=== PATIENT | female | born 1995 | race Two or more races ===

== ENCOUNTER 2021-05-13 02:28 | Emergency (ER) | payer MEDICAID ==
[~2021-05-13] VITALS: Ht 162.6 cm; Wt 59.1 kg
[2021-05-13 04:23] LABS: BASOPHILS % (AUTO) 0.3 % (0.0-2.0); HEMATOCRIT 35.6 % (36-46); HEMOGLOBIN 11.8 g/dL (12.0-16.0); LYMPHOCYTES # (AUTO) 2.5 K/uL (1.0-4.8); LYMPHOCYTES % (AUTO) 25.7 % (22.0-44.0); MEAN CORPUSCULAR HEMOGLOBIN 28.1 pg (26.0-34.0); MEAN CORPUSCULAR HGB CONC 33.2 G/dL (31.0-37.0); MEAN CORPUSCULAR VOLUME 85 fL (80-100); MONOCYTES # (AUTO) 0.8 K/uL (0.1-1.0); NEUTROPHILS # (AUTO) 6.4 K/uL (1.8-7.7); PLATELET COUNT (AUTO) 321 K/uL (150-450); RED CELL DISTRIBUTION WIDTH 13.8 % (11.5-14.5)
[2021-05-13 04:39] LABS: ANION GAP 9 mmol/L (8-16); CALCIUM, TOTAL 8.8 mg/dL (8.8-10.5); CARBON DIOXIDE 26 mmol/L (22-29); CHLORIDE 103 mmol/L (98-107); CREATININE 0.48 mg/dL (0.60-1.30); GLOMERULAR FILTR. RATE CALC > 60 mL/min (>60); GLUCOSE,RANDOM 97 mg/dL (70-110); POTASSIUM 4.2 mmol/L (3.5-5.1); SODIUM SERUM 138 mmol/L (136-145); UREA NITROGEN, BLOOD 9 mg/dL (7-18)
[2021-05-13 05:08] LABS: ALANINE AMINOTRANSFERASE 30 U/L (12-78); ALBUMIN 3.3 g/dL (3.4-5.0); ALKALINE PHOSPHATASE 65 U/L (46-116); ASPARTATE AMINOTRANSFERASE 16 U/L (15-37); BILIRUBIN,TOTAL 0.1 mg/dL (0.1-1.0); HCG,QUANTITATIVE 33693 mIU/mL (0-6); TOTAL PROTEIN, SERUM 7.6 g/dL (6.4-8.2)
[2021-05-13 05:10] VITALS: BP 126/92
== END 2021-05-13 05:26 | disposition home or self-care (01) ==
LOC: EMS 02:36
DX: O26.891 Other specified pregnancy related conditions, first trimester (principal); F41.9 Anxiety disorder, unspecified; R10.2 Pelvic and perineal pain; Z3A.01 Less than 8 weeks gestation of pregnancy
CPT/HCPCS: 76801; 76817; 80053; 84702; 85025; 86901; 99284

== ENCOUNTER 2021-10-08 11:00 | Emergency (ER) | payer MEDICAID ==
[~2021-10-08] VITALS: Ht 157.5 cm; Wt 60.5 kg
[2021-10-08] MEDS ORDERED: ONDANSETRON HCL 4 MG/2 ML VIAL IVP ONE (12:15)
[2021-10-08] MEDS ORDERED: SODIUM CHLORIDE 0.9% 1,000 ML IV ONE (12:15)
[2021-10-08 12:30] LABS: BASOPHILS % (AUTO) 0.1 % (0.0-2.0); EOSINOPHILS % (AUTO) 0.2 % (1.0-6.0); HEMATOCRIT 38.5 % (36-46); HEMOGLOBIN 12.8 g/dL (12.0-16.0); LYMPHOCYTES # (AUTO) 1.1 K/uL (1.0-4.8); MEAN CORPUSCULAR HEMOGLOBIN 28.7 pg (26.0-34.0); MEAN CORPUSCULAR HGB CONC 33.1 G/dL (31.0-37.0); MEAN CORPUSCULAR VOLUME 87 fL (80-100); MONOCYTES # (AUTO) 0.5 K/uL (0.1-1.0); MONOCYTES % (AUTO) 5.5 % (2.0-9.0); NEUTROPHILS # (AUTO) 7.7 K/uL (1.8-7.7); NEUTROPHILS % (AUTO) 82.2 % (40.0-70.0); PLATELET COUNT (AUTO) 307 K/uL (150-450); RED BLOOD CELL COUNT(AUTO) 4.45 MIL/uL (4.00-5.20)
[2021-10-08 12:38] LABS: ANION GAP 11 mmol/L (8-16); CALCIUM, TOTAL 8.4 mg/dL (8.8-10.5); CARBON DIOXIDE 21 mmol/L (22-29); CHLORIDE 103 mmol/L (98-107); CREATININE 0.41 mg/dL (0.60-1.30); GLOMERULAR FILTR. RATE CALC > 60 mL/min (>60); GLUCOSE,RANDOM 83 mg/dL (70-110); POTASSIUM 3.4 mmol/L (3.5-5.1); SODIUM SERUM 135 mmol/L (136-145); UREA NITROGEN, BLOOD 4 mg/dL (7-18)
[2021-10-08 12:43] LABS: INR 0.9 (0.9-1.1); PROTHROMBIN TIME 10.1 SEC (9.4-11.6)
[2021-10-08 12:45] LABS: COVID AG,FIA SOURCE NASOPHARYNGEAL
[2021-10-08 13:15] LABS: INFLUENZA TYPE A NEGATIVE FOR TYPE A (NEGATIVE)
[2021-10-08] MEDS ORDERED: GuaiFENesin/D-METHORPHAN [SUGAR-FREE] 200-20MG/10 ML SYRUP UDCUP PO ONE (13:15)
[2021-10-08] MEDS ORDERED: ACETAMINOPHEN 500 MG TABLET PO ONE (13:15)
[2021-10-08 13:16] LABS: INFLUENZA TYPE B NEGATIVE FOR TYPE B (NEGATIVE)
[2021-10-08 13:17] LABS: ALANINE AMINOTRANSFERASE 16 U/L (12-78); ALBUMIN 2.8 g/dL (3.4-5.0); ALKALINE PHOSPHATASE 90 U/L (46-116); ASPARTATE AMINOTRANSFERASE 15 U/L (15-37); BILIRUBIN,TOTAL 0.2 mg/dL (0.1-1.0); HCG,QUANTITATIVE 20682 mIU/mL (0-6); LIPASE 84 U/L (73-393); TOTAL PROTEIN, SERUM 7.7 g/dL (6.4-8.2)
[2021-10-08 13:30] VITALS: BP 130/76
== END 2021-10-08 13:44 | disposition home or self-care (01) ==
LOC: EMS 11:02
DX: O26.892 Other specified pregnancy related conditions, second trimester (principal); K52.9 Noninfective gastroenteritis and colitis, unspecified; O99.512 Diseases of the respiratory system complicating pregnancy, second trimester; J06.9 Acute upper respiratory infection, unspecified; Z20.822 Contact with and (suspected) exposure to COVID-19; Z3A.00 Weeks of gestation of pregnancy not specified
CPT/HCPCS: 36415; 80053; 83690; 84702; 85025; 85610; 85730; 87426; 87804; 96361; 96374; 99283; J2405; J7030

== ENCOUNTER 2021-12-29 22:53 | Emergency (ER) | payer MEDICAID ==
[~2021-12-29] VITALS: Ht 157.5 cm; Wt 69.1 kg
[2021-12-30 00:01] LABS: BASOPHILS % (AUTO) 0.3 % (0.0-2.0); EOSINOPHILS % (AUTO) 0.3 % (1.0-6.0); HEMATOCRIT 47.4 % (36-46); HEMOGLOBIN 15.8 g/dL (12.0-16.0); LYMPHOCYTES # (AUTO) 2.3 K/uL (1.0-4.8); LYMPHOCYTES % (AUTO) 16.4 % (22.0-44.0); MEAN CORPUSCULAR HEMOGLOBIN 27.9 pg (26.0-34.0); MEAN CORPUSCULAR HGB CONC 33.2 G/dL (31.0-37.0); MEAN CORPUSCULAR VOLUME 84 fL (80-100); MONOCYTES # (AUTO) 0.8 K/uL (0.1-1.0); MONOCYTES % (AUTO) 5.9 % (2.0-9.0); NEUTROPHILS % (AUTO) 77.1 % (40.0-70.0); PLATELET COUNT (AUTO) 523 K/uL (150-450); RED BLOOD CELL COUNT(AUTO) 5.66 MIL/uL (4.00-5.20)
[2021-12-30 00:12] LABS: ANION GAP 11 mmol/L (8-16); CALCIUM, TOTAL 8.8 mg/dL (8.8-10.5); CARBON DIOXIDE 24 mmol/L (22-29); CHLORIDE 104 mmol/L (98-107); CREATININE 0.66 mg/dL (0.60-1.30); GLOMERULAR FILTR. RATE CALC > 60 mL/min (>60); GLUCOSE,RANDOM 126 mg/dL (70-110); POTASSIUM 3.7 mmol/L (3.5-5.1); SODIUM SERUM 139 mmol/L (136-145); UREA NITROGEN, BLOOD 16 mg/dL (7-18)
[2021-12-30 00:17] LABS: ALANINE AMINOTRANSFERASE 27 U/L (12-78); ALBUMIN 2.9 g/dL (3.4-5.0); ALKALINE PHOSPHATASE 116 U/L (46-116); ASPARTATE AMINOTRANSFERASE 17 U/L (15-37); BILIRUBIN,TOTAL 0.3 mg/dL (0.1-1.0); LIPASE 45 U/L (73-393); TOTAL PROTEIN, SERUM 7.8 g/dL (6.4-8.2)
[2021-12-30] MEDS ORDERED: ONDANSETRON HCL 4 MG/2 ML VIAL IVP ONE (03:00)
[2021-12-30] MEDS ORDERED: ACETAMINOPHEN 1000 MG/ISO-OSM 100 ML IV ONE (03:00)
[2021-12-30] MEDS ORDERED: LOPERAMIDE HCL 2 MG CAPSULE PO ONE (03:00)
[2021-12-30] MEDS ORDERED: SODIUM CHLORIDE 0.9% 1,000 ML IV ONE (03:00)
[2021-12-30 08:57] VITALS: BP 122/71
[2021-12-30] MEDS ORDERED: ONDA-104 PO (09:07)
== END 2021-12-30 09:44 | disposition home or self-care (01) ==
LOC: EMS 23:09
DX: O14.95 Unspecified pre-eclampsia, complicating the puerperium (principal); R10.13 Epigastric pain; R19.7 Diarrhea, unspecified
CPT/HCPCS: 36415; 74176; 76700; 80053; 83690; 85025; 96361; 96374; 96375; 99284; J0131; J2405

== ENCOUNTER 2024-06-05 09:40 | Emergency (ER) | payer MEDICAID, OTHER ==
[~2024-06-05] VITALS: Ht 152.4 cm; Wt 60.0 kg
[~2024-06-05 09:40] MED LIST: ONDA-104 PO
[2024-06-05 09:46] VITALS: TEMP 98
[2024-06-05] MEDS: SODIUM CHLORIDE 0.9% 500 ML IV ONE (10:42)
[2024-06-05 10:45] LABS: BASOPHILS % (AUTO) 0.3 % (0.0-2.0); EOSINOPHILS % (AUTO) 0.3 % (1.0-6.0); HEMATOCRIT 39.8 % (36-46); HEMOGLOBIN 13.2 g/dL (12.0-16.0); LYMPHOCYTES # (AUTO) 2.9 K/uL (1.0-4.8); LYMPHOCYTES % (AUTO) 27.3 % (22.0-44.0); MEAN CORPUSCULAR HEMOGLOBIN 28.8 pg (26.0-34.0); MEAN CORPUSCULAR HGB CONC 33.3 G/dL (31.0-37.0); MEAN CORPUSCULAR VOLUME 87 fL (80-100); MONOCYTES # (AUTO) 0.5 K/uL (0.1-1.0); MONOCYTES % (AUTO) 4.3 % (2.0-9.0); NEUTROPHILS # (AUTO) 7.2 K/uL (1.8-7.7); NEUTROPHILS % (AUTO) 67.8 % (40.0-70.0); PLATELET COUNT (AUTO) 342 K/uL (150-450); RED CELL DISTRIBUTION WIDTH 13.7 % (11.5-14.5); WHITE BLOOD COUNT (AUTO) 10.6 K/uL (4.5-11.0)
[2024-06-05 10:54] LABS: ANION GAP 8 mmol/L (8-16); CALCIUM, TOTAL 9.4 mg/dL (8.8-10.5); CARBON DIOXIDE 26 mmol/L (22-29); CHLORIDE 100 mmol/L (98-107); CREATININE 0.79 mg/dL (0.60-1.30); GLOMERULAR FILTR. RATE CALC > 60 mL/min (>60); GLUCOSE,RANDOM 101 mg/dL (70-110); POTASSIUM 3.4 mmol/L (3.5-5.1); SODIUM SERUM 134 mmol/L (136-145); UREA NITROGEN, BLOOD 15 mg/dL (7-18)
[2024-06-05] MEDS: ONDANSETRON HCL 4 MG/2 ML VIAL IVP ONE (10:54)
[2024-06-05] MEDS: LORazepam 1 MG TABLET PO ONE (13:18)
[2024-06-05] MEDS ORDERED: IBUP-1492 PO (13:28)
[2024-06-05 13:44] VITALS: BP 112/70; PULSE 82; RESP 18
== END 2024-06-05 13:46 | disposition home or self-care (01) ==
LOC: EMS 09:40
DX: R51.9 Headache, unspecified (principal)
CPT/HCPCS: 99285; 96374; 70450; 96361; 80048; 84703; 85025; 36415; J2405